=== PATIENT | male | born 1950 | race Caucasian/White ===

== ENCOUNTER → 2018-03-20 13:53 | Outpatient (CLI) | payer MEDICARE, OTHER, SELFPAY ==
--- NOTE | 2018-03-20 | DI.MRI.S_ITS ---
PROCEDURE: MR SHOULDER LT WO CON INDICATIONS: COMPLETE ROTATOR CUFF TEAR TECHNIQUE: Noncontrast oblique coronal T2 fast spin echo with fat saturation, oblique sagittal T1 spin echo and T2 fast spin echo with fat saturation, axial T1 spin echo and T2 fast spin echo with fat saturation through the shoulder. COMPARISON: [facility] [place], [place], XR SHOULDER 2+ VIEWS LEFT, 03/12/2018, 9:09. FINDINGS: Image quality: Excellent. Rotator cuff: There is full thickness tearing of the mid/posterior supraspinatus tendon at the humeral insertion, with medial retraction and atrophy of the supraspinatus. There is full thickness tearing of the mid/anterior infraspinatus tendon at the humeral insertion site, demonstrating intrasubstance extension, with mild medial retraction. There is moderate to high-grade tearing of the posterior infraspinatus tendon at the humeral insertion site. Subscapularis tendon demonstrates mild partial-thickness reticular surface tearing of its midportion at the humeral insertion site extending to the muscle tendon junction. Teres minor is intact. Bones and bursae: No bone marrow contusions or fractures. Moderate acromioclavicular joint degeneration. The acromion demonstrates conventional anatomy, without an os acromiale. No pathologic subacromial-subdeltoid or subcoracoid bursal fluid is present. Capsule and soft tissues: In the absence of intra-articular contrast, the labrum and glenohumeral ligaments appear intact. The long head of the biceps tendon demonstrates normal location and morphology. The rotator interval appears normal, without fibrosis. The coracohumeral ligament is normal in thickness. IMPRESSION: 1. Full thickness tearing of the mid/posterior supraspinatus and the mid/anterior infraspinatus tendons, with medial retraction and atrophy of the supraspinatus. Mild medial retraction of the infraspinatus. High-grade tearing of the posterior infraspinatus tendon. Low-grade partial-thickness articular surface tearing of the subscapularis tendon. 2. Acromioclavicular joint osteoarthritis. Dictated by: Romeo Coates M.D. on 03/20/2018 at 14:54 Approved by: Romeo Coates M.D. on 03/20/2018 at 14:59
== END ==
PROVIDERS: PCP Family Medicine; Visit Provider Orthopaedic Surgery
DX: M75.122 Complete rotator cuff tear or rupture of left shoulder, not specified as traumatic (principal); M19.012 Primary osteoarthritis, left shoulder
CPT/HCPCS: 73221

== ENCOUNTER → 2018-05-08 13:12 | Outpatient (CLI) | payer MEDICARE, OTHER, SELFPAY | PROVIDERS: PCP Family Medicine; Visit Provider Family Medicine | DX: T81.30XA Disruption of wound, unspecified, initial encounter (principal); S41.002A Unspecified open wound of left shoulder, initial encounter; I10 Essential (primary) hypertension | CPT/HCPCS: 11042; 87070; 87075; 87205; 99203; 99213 ==

== ENCOUNTER → 2018-05-13 16:50 | Outpatient (CLI) | payer MEDICARE, OTHER, SELFPAY | PROVIDERS: PCP Family Medicine; Visit Provider Family Medicine | DX: T81.30XA Disruption of wound, unspecified, initial encounter (principal); S41.002A Unspecified open wound of left shoulder, initial encounter | CPT/HCPCS: 11042; 97607 ==

== ENCOUNTER → 2018-05-15 11:06 | Outpatient (CLI) | payer MEDICARE, OTHER, SELFPAY | PROVIDERS: PCP Family Medicine; Visit Provider Family Medicine | DX: T81.30XA Disruption of wound, unspecified, initial encounter (principal); S41.002A Unspecified open wound of left shoulder, initial encounter | CPT/HCPCS: 11042; 97607 ==

== ENCOUNTER → 2018-05-19 11:44 | Outpatient (CLI) | payer MEDICARE, OTHER, SELFPAY | PROVIDERS: PCP Family Medicine; Visit Provider Family Medicine | DX: T81.30XA Disruption of wound, unspecified, initial encounter (principal); S41.002A Unspecified open wound of left shoulder, initial encounter; I10 Essential (primary) hypertension | CPT/HCPCS: 99213 ==

== ENCOUNTER → 2018-05-26 09:41 | Outpatient (CLI) | payer MEDICARE, OTHER, SELFPAY | PROVIDERS: PCP Family Medicine; Visit Provider Family Medicine | DX: T81.30XA Disruption of wound, unspecified, initial encounter (principal); S41.002A Unspecified open wound of left shoulder, initial encounter | CPT/HCPCS: 99212 ==